=== PATIENT | female | born 1960 ===

== ENCOUNTER 2017-08-15 11:55 | Outpatient (CLI) | payer OTHER | END 2017-08-15 12:40 | disposition home or self-care (01) | LOC: NUCLEAR 11:55 | DX: R42 Dizziness and giddiness (principal) ==

== ENCOUNTER 2018-08-28 09:26 | Outpatient (CLI) | payer OTHER ==
[~2018-08-28 09:26] MED LIST: CRESTOR10 MG PO
== END 2018-08-28 17:00 | disposition home or self-care (01) ==
LOC: MRI 09:26
DX: M54.17 Radiculopathy, lumbosacral region (principal); M51.27 Other intervertebral disc displacement, lumbosacral region
CPT/HCPCS: 72148

== ENCOUNTER 2018-09-13 08:37 | Outpatient (CLI) | payer OTHER | END 2018-09-13 17:00 | disposition home or self-care (01) | LOC: MAMO-SONO 08:37 | DX: N60.11 Diffuse cystic mastopathy of right breast (principal); N10 Acute pyelonephritis; Z12.31 Encounter for screening mammogram for malignant neoplasm of breast ==

== ENCOUNTER 2019-02-06 10:12 | Outpatient (CLI) | payer OTHER | END 2019-02-06 15:00 | disposition home or self-care (01) | LOC: RAD 10:12 | DX: M25.571 Pain in right ankle and joints of right foot (principal) ==

== ENCOUNTER 2019-05-14 12:47 | Outpatient (CLI) | payer OTHER | END 2019-05-14 14:25 | disposition home or self-care (01) | LOC: SONOGRAMA 12:47 | DX: I10 Essential (primary) hypertension (principal); R10.84 Generalized abdominal pain ==

== ENCOUNTER → 2019-07-04 | Outpatient (CLI) | payer OTHER | END | disposition home or self-care (01) | LOC: MRI 12:39 | DX: M54.2 Cervicalgia (principal); M48.02 Spinal stenosis, cervical region | CPT/HCPCS: 72141 ==

== ENCOUNTER → 2020-02-04 | Outpatient (CLI) | payer OTHER | END | disposition home or self-care (01) | LOC: MAMO-SONO 08:15 | PROVIDERS: ATTEND Obstetrics & Gynecology | DX: D25.9 Leiomyoma of uterus, unspecified (principal) ==

== ENCOUNTER 2021-02-18 08:38 | Outpatient (CLI) | payer OTHER | END 2021-02-18 08:39 | disposition home or self-care (01) | LOC: MAMO-SONO 08:38 | PROVIDERS: ATTEND Obstetrics & Gynecology | DX: D25.2 Subserosal leiomyoma of uterus (principal); N60.11 Diffuse cystic mastopathy of right breast; Z12.31 Encounter for screening mammogram for malignant neoplasm of breast; R10.2 Pelvic and perineal pain ==

== ENCOUNTER 2021-02-18 10:23 | Outpatient (CLI) | payer OTHER | END 2021-02-18 10:25 | disposition home or self-care (01) | LOC: LAB 10:23 | PROVIDERS: ATTEND Internal Medicine Cardiovascular Disease | DX: N39.0 Urinary tract infection, site not specified (principal) ==

== ENCOUNTER 2021-02-18 15:23 | Outpatient (CLI) | payer OTHER | END 2021-02-18 15:29 | disposition home or self-care (01) | LOC: NUCLEAR 15:23 | PROVIDERS: ATTEND Internal Medicine Cardiovascular Disease | DX: M81.0 Age-related osteoporosis without current pathological fracture (principal); M85.89 Other specified disorders of bone density and structure, multiple sites ==

== ENCOUNTER 2021-04-01 08:00 | Outpatient (CLI) | payer OTHER | END 2021-04-01 08:30 | disposition home or self-care (01) | LOC: PPH VACUNA 08:00 | DX: Z23 Encounter for immunization (principal) ==

== ENCOUNTER 2021-04-01 11:22 | Outpatient (CLI) | payer OTHER | END 2021-04-01 11:27 | disposition home or self-care (01) | LOC: SONOGRAMA 11:22 | PROVIDERS: ATTEND Obstetrics & Gynecology | DX: R10.84 Generalized abdominal pain (principal) ==

== ENCOUNTER 2021-11-01 08:00 | Outpatient (CLI) | payer OTHER | END 2021-11-01 08:30 | disposition home or self-care (01) | LOC: PPH VACUNA 08:00 | PROVIDERS: ATTEND Emergency Medicine Pediatric Emergency Medicine | DX: Z23 Encounter for immunization (principal) ==

== ENCOUNTER 2022-04-22 10:22 | Outpatient (CLI) | payer OTHER | END 2022-04-22 12:33 | disposition home or self-care (01) | LOC: MAMO-SONO 10:22 | PROVIDERS: ATTEND Obstetrics & Gynecology | DX: Z12.31 Encounter for screening mammogram for malignant neoplasm of breast (principal); N60.11 Diffuse cystic mastopathy of right breast; R10.2 Pelvic and perineal pain ==

== ENCOUNTER 2022-04-22 12:52 | Outpatient (CLI) | payer OTHER | END 2022-04-22 13:02 | disposition home or self-care (01) | LOC: PPH VACUNA 12:52 | PROVIDERS: ATTEND Emergency Medicine Pediatric Emergency Medicine | DX: Z23 Encounter for immunization (principal) ==

== ENCOUNTER → 2022-09-09 11:08 | Outpatient (CLI) | payer OTHER | END | disposition home or self-care (01) | LOC: LAB 11:08 | PROVIDERS: ATTEND Urology | DX: N30.80 Other cystitis without hematuria (principal) ==

== ENCOUNTER 2023-02-09 09:10 | Outpatient (CLI) | payer OTHER | END 2023-02-09 09:30 | disposition home or self-care (01) | LOC: MAMO-SONO 09:10 | PROVIDERS: ATTEND Plastic Surgery Surgery of the Hand | DX: Z01.818 Encounter for other preprocedural examination (principal); N62 Hypertrophy of breast; Z12.31 Encounter for screening mammogram for malignant neoplasm of breast ==

== ENCOUNTER 2024-04-02 10:05 | Outpatient (CLI) | payer OTHER | END 2024-04-02 10:30 | disposition home or self-care (01) | LOC: MAMO-SONO 10:05 | PROVIDERS: ATTEND Radiology Diagnostic Radiology | DX: N60.11 Diffuse cystic mastopathy of right breast (principal); R10.11 Right upper quadrant pain; Z12.31 Encounter for screening mammogram for malignant neoplasm of breast ==

== ENCOUNTER 2024-08-28 09:59 | Outpatient (CLI) | payer OTHER | END 2024-08-28 10:10 | disposition home or self-care (01) | LOC: MRI 09:59 | PROVIDERS: ATTEND Radiology Diagnostic Radiology | DX: M25.511 Pain in right shoulder (principal) ==

== ENCOUNTER 2025-02-07 12:24 | Outpatient (CLI) | payer OTHER ==
[2025-02-07 14:14] LABS: URINE APPEARANCE Cloudy; URINE BILIRRUBIN Negative (NEGATIVE); URINE BLOOD Negative; URINE COLOR Yellow; URINE GLUCOSE Negative (NEGATIVE); URINE KETONE Negative (NEGATIVE); URINE LEUKOCYTE Negative; URINE NITRATE Negative; URINE PROTEIN Negative (NEGATIVE); URINE UROBILINOGEN 0.2 E.U./dl
[2025-02-07 14:17] LABS: URINE BACTERIA 7.1 uL (0.0-1933); URINE EPITHELIAL CELLS 2.3 uL (0.0-38.8); URINE RBC 7.4 uL (0.0-20.8)
[2025-02-07 14:24] LABS: URINE CAST 0.00 uL (0.0-1.40); URINE WBC 1.3 uL (0.0-23.2)
== END 2025-02-07 12:26 | disposition home or self-care (01) ==
LOC: LAB 12:24
PROVIDERS: ATTEND Internal Medicine Cardiovascular Disease
DX: N39.0 Urinary tract infection, site not specified (principal); I10 Essential (primary) hypertension

== ENCOUNTER → 2025-02-07 | Outpatient (CLI) | payer OTHER | END | disposition home or self-care (01) | LOC: SONOGRAMA 12:17 | PROVIDERS: ATTEND Internal Medicine Cardiovascular Disease | DX: N39.0 Urinary tract infection, site not specified (principal); I10 Essential (primary) hypertension ==